=== PATIENT | male | born 1990 | race Caucasian/White ===

== ENCOUNTER → 2019-12-15 | Outpatient (CLI) | payer OTHER | END | disposition home or self-care (01) | LOC: RAD 14:49 | DX: R22.41 Localized swelling, mass and lump, right lower limb (principal); M25.579 Pain in unspecified ankle and joints of unspecified foot ==

== ENCOUNTER → 2019-12-21 | Outpatient (CLI) | payer OTHER | END | disposition home or self-care (01) | LOC: RAD 09:38 | DX: S93.401A Sprain of unspecified ligament of right ankle, initial encounter (principal); X58.XXXA Exposure to other specified factors, initial encounter; Y93.89 Activity, other specified; Y92.89 Other specified places as the place of occurrence of the external cause; Y99.8 Other external cause status ==